=== PATIENT | male | born 1955 | race Caucasian/White ===

== ENCOUNTER 2016-09-13 05:36 | Inpatient (IN) ==
[2016-09-06 13:39] LABS: Basophils # 0.1 10*3/uL (0.0-0.2); Basophils % 0.9 % (0.0-0.8); Eosinophils # 0.6 10*3/uL (0.0-0.87); Eosinophils % 7.4 % (0.00-10.9); Hematocrit 49.3 VOL% (42.0-52.0); Hemoglobin 17.5 GM/DL (14.0-18.0); Immature Granulocytes % 0.4 %; Immature Granulocytes Absolute 0.03 #; Lymphocytes # 1.8 10*3/uL (1.4-4.0); Lymphocytes % 22.2 % (21.2-54.2); Mean Corpuscular HGB Conc 35.5 GM/DL (32-36); Mean Corpuscular Hemoglobin 34 PG (27-34); Mean Corpuscular Volume 94.3 FL (87-102); Mean Platelet Volume 10.2 FL (9.6-12.0); Monocytes # 0.7 10*3/uL (0.11-0.8); Monocytes % 9.2 % (1.7-12.7); Neutrophils # 4.8 10*3/uL (1.4-7.4); Neutrophils % 59.9 % (38.7-73.9); Platelet Count 234 T/CUMM (130-400); Red Blood Count 5.23 MC/CUMM (3.8-5.5); Red Cell Distribution Width 12.6 % (9.3-17.3)
[2016-09-06 13:42] LABS: Apearance,Urine CLEAR (Clear); Bilirubin,Urine Negative (Negative); Blood, Urine Negative (Negative); Glucose,Urine (UA) Negative (Negative); Ketones,Urine Negative (Negative); Nitrite,Urine Negative (Negative); Protein,Urine Negative; RBC,Urine <1 /HPF (0-4); Urine Color Yellow (Yellow); Urine Specific Gravity 1.017 (1.001-1.035); Urine Urobilinogen < 2.0 EU/DL (0.2-1.0); WBC,Urine 1 /HPF (0-6)
[2016-09-06 13:57] LABS: Calcium 9.6 MG/DL (8.5-10.1); Osmolality,Calculated 282.3 MOS/KG (273-304); Potassium 3.9 MMOL/L (3.5-5.1)
[2016-09-13] MEDS ORDERED: cefTRIAXone 1,000 MG VIAL ONE (05:56)
[2016-09-13] MEDS ORDERED: ALVIMOPAN 12 MG CAPSULE ONE (05:56)
[2016-09-13] MEDS ORDERED: SODIUM CHLORIDE 0.9% 100 ML IV ONE (05:57)
[2016-09-13] MEDS ORDERED: SODIUM PHOSPHATE ENEMA 133 ML BOTTLE RECTAL ONE ×2 (05:57→06:00)
[2016-09-13] MEDS ORDERED: ALVIMOPAN 12 MG CAPSULE PO ONE (06:00)
[2016-09-13] MEDS ORDERED: cefTRIAXone 1,000 MG in SODIUM CHLORIDE 0.9% 100 ML IV ONE (06:00)
[2016-09-13] MEDS ORDERED: LORazepam 1 MG TABLET PO ONE (06:08)
[2016-09-13] MEDS ORDERED: FAMOTIDINE 20 MG TABLET PO ONE (06:08)
[2016-09-13] MEDS: LACTATED RINGERS 1,000 ML IV SCH (06:24)
[2016-09-13] MEDS ORDERED: LORazepam 1 MG TABLET ONE (06:37)
[2016-09-13] MEDS ORDERED: FAMOTIDINE 20 MG TABLET ONE (06:37)
--- NOTE | 2016-09-13 06:37 | EKG Report ---
Stationary ECG Study [facility] Test Date: 09/13/2016 6:36:38 AM Pat Name: [facility] Department: Room: 615 Gender: M Parking Supervisor: CARLOTTA : 1955 Requested by: Jaylen Packer Order Number: [id number] Reading MD: DIXIE VELAZQUEZ Intervals [place] Rate: 72 P: 35 NV: 168 QRS: 42 QRSD: 99 T: 54 QT: 353 QTc: 378 Interpretive Statements SINUS RHYTHM POSSIBLE RIGHT VENTRICULAR CONDUCTION DELAY LOW VOLTAGE IN THE ANTERIOR LIMB LEADS NON-SPECIFIC CONDUCTION DELAY Electronically Signed On 09-13-16 07:26:58 CDT by DIXIE VELAZQUEZ [id number]
--- NOTE | 2016-09-13 06:54 | History and Physical Update ---
History and Physical Update - History and Physical H&P was reviewed, the patient examined and there: are no changes in the patients condition since last H&P was completed. - Dictation Physical: refer to scanned H&P - Physical Exam Mental Status: alert and oriented Heart: regular rate and rhythm Lung: clear to auscultation Abdomen: within normal limits Vitals: within normal limits History and Physical Changes: Plan for robotic assisted laparoscopic bilateral inguinal hernia repair with mesh in conjunction with radical prostatectomy (by Dr. Dell Evans).
[2016-09-13] MEDS ORDERED: PROPOFOL 200 MG/20 ML VIAL IV ONE (07:12)
[2016-09-13] MEDS ORDERED: ONDANSETRON 4 MG/2 ML VIAL ONE ×2 (07:12→13:40)
[2016-09-13] MEDS ORDERED: PHENYLEPHRINE 1 MG/10 ML SYRINGE IV ONE (07:12)
[2016-09-13] MEDS ORDERED: GLYCOPYRROLATE 0.4 MG/2 ML VIAL ONE (07:12)
[2016-09-13] MEDS ORDERED: NEOSTIGMINE 10 MG/10 ML VIAL ONE (07:12)
[2016-09-13] MEDS ORDERED: ROCURONIUM 100 MG/10 ML VIAL IV ONE (07:12)
[2016-09-13] MEDS ORDERED: KETOROLAC 30 MG/1 ML VIAL ONE (07:12)
[2016-09-13] MEDS ORDERED: DEXAMETHASONE 10 MG/1 ML VIAL ONE (07:12)
[2016-09-13] MEDS ORDERED: LIDOCAINE 2% 5 ML VIAL ONE (07:12)
[2016-09-13 08:19] LABS: Apearance,Urine CLEAR (Clear); Bilirubin,Urine Negative (Negative); Blood, Urine Large mg/dL (Negative); Glucose,Urine (UA) Negative (Negative); Ketones,Urine Negative (Negative); Mucus,Urine Occasional /LPF (Occasional); Nitrite,Urine Negative (Negative); Protein,Urine Negative; RBC,Urine 16 /HPF (0-4); Urine Color Straw (Yellow); Urine Urobilinogen < 2.0 EU/DL (0.2-1.0); WBC,Urine <1 /HPF (0-6)
[2016-09-13] MEDS ORDERED: ONDANSETRON 4 MG/2 ML VIAL IV PRN ×2 (11:19→13:28)
--- NOTE | 2016-09-13 11:37 | Operative Note ---
Date of procedure: 09/13/16 Pre-op diagnosis: Prostate cancer Post-op diagnosis: same Procedure: 61-year-old white male intermediate risk carcinoma prostate elected to undergo robotic radical prostatectomy. He also has bilateral inguinal hernias that Dr. Pérez will repair. Robotic prostatectomy was explained at length and in detail. Risks, complications, outcomes, sequela, prognosis and alternative therapy was thoroughly discussed. Patient understood this and agreed to proceed. Patient's brought to the operative suite placed on the operating table on the securing pad in the supine position. He is then given a general endotracheal anesthetic and placed in lithotomy position and secured to the table in the usual fashion for robotic prostatectomy. He is then prepared and draped in the usual sterile manner. Formal timeout was performed. Incision is created above the umbilicus. Veress needle was then used to chacon the abdominal wall and pneumoperitoneum was obtained. The Veress needle was confirmed with the to click and saline drop test. After the pneumoperitoneum was obtained, the Veress needle was removed. 8 mm trochars in past. The camera was then inserted and the intra-abdominal contents are examined. There is some heat adhesions from the left colon to the left pelvic sidewall which need to be taken down otherwise were free. Lateral to the camera on each side about 8 cm #1 and #3 arm a put in and the fourth arm split lateral to the third arm on the right side. These are all done under direct vision. Assistance port is placed between the #1 and camera port about 4 inches above. This is a 12 mm port. [place] bipolar is in the left hand and monopolar scissors in the right posterior approach is initially obtained. The colon was dissected from its adhesions. Anterior incision created in the cul-de-sac. There is very little room in this cul-de-sac due to this being a male patient in the large amount of adipose tissue. Vas deferens were identified dissected out ligated and divided. Seminal vesicles were dissected out of the bed. Care was taken using minimal cautery as this is a nerve sparing. A window in Denonvilliers's fascia is then created. Attention was then directed to creating the above bladder flap. There is a large amount of prevesical fat. The median umbilical ligaments were then divided and the bladder was dropped down. There is a large amount of fat around the prostate and I removed that superficial dorsal vein is then ligated with the vessel sealer and then divided. Endopelvic fascia was incised bilaterally small attachments are divided and dissected off the prostate. #1 Vicryl was used to ligate the dorsal venous complex. Attention was directed bladder neck with bunching of the tissue in the midline and light traction on the Crowley the junction is identified. This is initially scored with cautery and sharp dissection was continued down to the anterior bladder neck. This was entered and the bladder was drained. Prostate was bluntly and sharply dissected off the bladder. Crowley catheter was deflated and using the fourth arm this was used for traction. The posterior bladder neck was incised and dissection was continued posteriorly to where the Vannas and seminal vesicles were. Due to the large seminal vesicles I amputated them to help me with the dissection. These were sent with the permanent specimen. Pedicles were taken down intermittently and hemoclipped and then divided. On both sides the lateral prostatic fascia was dissected off the prostate is with a nerve sparing. Remainder posterior lateral pedicles were then Weck clipped and divided. Prostate was pulled up and the plane between the rectum and the prostate was sharply and bluntly developed. Small vessels were coagulated. The nerve was dissected off laterally the prostate was dissected down to the urethra. Dorsal vein complex was then incised in urethra was dissected down to the apex. This was incised anteriorly catheter was pulled back the posterior urethra was divided. Remaining attachments were sharply dissected off and the nerves were retracted laterally. The prostate was then freed up and removed along with its attachments and placed in a specimen bag. Pelvis was then irrigated and drained. Bilateral obturator node dissections were performed. The obturator nerve was kept in view at all times and not injured. A 2-0 Vicryl was used to approximate the posterior urethral plate to the posterior bladder neck. A 3 oh juventino anastomotic suture was begun at 6:00 outside in on both urethra and the bladder neck. This was then continued from the 5:00 to 1:00 and 7:00 11:00 positions. A new 22 K[place] Crowley was then inserted with 12 cc in balloon and light traction was pulled down the anastomotic suture was tied securely. Catheter was irrigated and found to have watertight anastomosis. The patient was then laying flat and the robot was undocked. The staffing assistant 12 mm port was removed and this incision was extended short bit on both sides. The muscles and fascia was divided and the specimen bag with that contain the prostate and its attachments were then removed. Cautery was used hemostasis. This wound was then closed with a running 0 Monocryl. Subcutaneous tissue was irrigated drained hemostasis checked again and then the skin on this wound was closed with skin clips. This point the procedure was turned over to Dr. Pérez. All sponge, needle and instrument counts correct 2 on the prostatectomy. Implants: 22 [place]z silicone Crowley Surgeon / Physician: Dell Evans Estimated blood loss: other (200 cc) Specimens: other (Prostate with seminal vesicles, bilateral obturator nodes) Condition: stable Disposition: no change Results - Labs CBC & BMP: 09/06/16 13:31 09/06/16 13:31 Discharge Plan - Discharge Medications No Action Valsartan 40 mg PO DAILY Meloxicam 7.5 mg PO DAILY Aspirin 325 mg PO DAILY - Follow Up or Referral - Forms/Instructions
--- NOTE | 2016-09-13 12:59 | Operative Note ---
Date of procedure: 09/13/16 Pre-op diagnosis: Symptomatic bilateral inguinal hernias Post-op diagnosis: same Procedure: Preoperative diagnosis Symptomatic bilateral inguinal hernias Postoperative diagnosis Same Procedures performed Robotic assisted laparoscopic bilateral inguinal hernia repair with mesh Findings The radical prostatectomy had already been performed when I started this portion of the procedure. A large portion of the peritoneum had already been taken down in the midline for the prostatectomy. A large right direct inguinal hernia and a moderate left indirect inguinal hernia were identified. The peritoneum was dissected free of both of these hernia spaces and the peritoneal flap dissection was continued to prevent any undermining underneath the mesh. 2 separate 10 x 15 cm collagen coated mesh were placed in the myopectineal orifice and the peritoneal flaps were left open because of a large defect that had been created from the prostatectomy and this was not possible to close. This is why coated mesh was used. The mesh was secured to the pubic tubercle with PDS suture and secured to the anterior abdominal wall above the anterior superior iliac spine bilaterally with a running PDS suture. Tisseel was then used to help secure down the mesh below the ASIS bilaterally and over the iliac vessels and cord structures. The 2 pieces of mesh overlap in the midline. Complications None apparent Specimen None Blood loss None Anesthesia GETA Indications Bilateral inguinal hernias Description of procedure I came to the operating room after the radical prostatectomy had been performed. The robot was docked and laparoscopy was performed. There is an indirect left inguinal hernia and a direct right anal hernia on exam. The peritoneal flaps that have been opened in the midline were extended laterally and from the hernia sac and the cord structures in the myopectineal orifice bilaterally. Once the peritoneal flaps were completely dissected away it was evident that the peritoneum was not able to be closed because of the large portion of peritoneum that was removed for the prostatectomy. A collagen coated piece of polypropylene mesh 10 x 15 cm in size was placed bilaterally and secured to Charlie's ligament and the pubic tubercle medially and a running PDS suture was then used to secure it in the midline and to the anterior abdominal wall but no sutures were placed laterally below the anterior superior iliac spine. This was done bilaterally and the mesh overlapped in the midline. The hernia defects were covered nicely. The Tisseel was then used to help secure the mesh over the iliac vessels and the cord structures as well as the neurovascular structures laterally below the superior iliac spine. The CO2 was released from the abdomen under visualization. The supraumbilical trocar site was closed with a 0 Monocryl suture and the skin incisions were closed with skin clips. The patient was awakened from anesthesia and transferred to recovery Postoperative plan Per urology Implants: covidien collagen coated polypropylene mesh 10 x 15cm (2 pieces) Anesthesia: TRUE Surgeon / Physician: Fabián Pérez Estimated blood loss: minimal Specimens: none sent Condition: stable Disposition: PACU Results - Labs CBC & BMP: 09/06/16 13:31 09/06/16 13:31 Discharge Plan - Discharge Medications No Action Valsartan 40 mg PO DAILY Meloxicam 7.5 mg PO DAILY Aspirin 325 mg PO DAILY - Follow Up or Referral Follow Up: Fabián Pérez MD [Physician] - 2 Weeks - Forms/Instructions
[2016-09-13] MEDS ORDERED: HYDROmorphone PCA 30 MG/30 ML SYRINGE IV ONE (13:14)
[2016-09-13] MEDS: HYDROmorphone PCA 30 MG/30 ML SYRINGE IV SCH (13:15)
[2016-09-13] MEDS ORDERED: DESFLURANE 1 UNIT/15 MINUTE INH ONE (13:24)
[2016-09-13] MEDS ORDERED: ePHEDrine 50 MG/ML AMP ONE (13:24)
[2016-09-13] MEDS ORDERED: SUFentanil 50 MCG/ML AMP ONE (13:24)
[2016-09-13] MEDS ORDERED: ACETAMINOPHEN 1,000 MG/100 ML VIAL IV ONE (13:25)
[2016-09-13] MEDS ORDERED: LACTATED RINGERS 2,000 ML IV ONE (13:25)
[2016-09-13] MEDS ORDERED: HYDROmorphone 2 MG/1 ML VIAL IV PRN (13:28)
--- NOTE | 2016-09-13 13:32 | Anesthesia Post-Op ---
Anesthesia Post OP - Post Ansesthetic Evaluation Patient seen in post op: Yes Resp: within normal limits CV: within normal limits Mental: within normal limits Temp: within normal limits [id number]: within normal limits Nausea and Vomiting: within normal limits Pain: within normal limits
[2016-09-13] MEDS ORDERED: HYDROmorphone 2 MG/1 ML VIAL ONE (13:39)
[2016-09-13] MEDS: DEXTROSE 5% NACL 0.45% 1,000 ML IV SCH ×2 (16:13→22:19)
[2016-09-13] MEDS: SOLIFENACIN 5 MG TABLET PO SCH (16:13)
--- NOTE | 2016-09-13 17:57 | Urology Progress Note ---
Urology - PN: Subj Interval history: Postoperative check. Patient is awake and alert urine is light pink. Vital signs stable. Patient is stable. Exam - Constitutional Vitals: Period Temp Pulse Resp BP Sys/Hart Pulse Ox Last 24 Hr 97 F-98.2 F 80-101 16-20 85-130/56-91 92-100 Results - Labs CBC & BMP: 09/06/16 13:31 09/06/16 13:31 Specialty Discharge - Follow Up or Referrals Follow up with: Fabián Pérez MD [Physician] - 2 Weeks
[2016-09-13] MEDS: ALVIMOPAN 12 MG CAPSULE PO SCH (20:17)
[2016-09-13] MEDS ORDERED: SODIUM CHLORIDE 0.9% 1,000 ML IV ONE (21:31)
[2016-09-13 22:01] LABS: Hematocrit 46.8 VOL% (42.0-52.0); Hemoglobin 15.4 GM/DL (14.0-18.0)
[2016-09-14 05:20] LABS: Basophils % 0.2 % (0.0-0.8); Hematocrit 44.2 VOL% (42.0-52.0); Hemoglobin 14.7 GM/DL (14.0-18.0); Immature Granulocytes % 0.5 %; Lymphocytes # 1.2 10*3/uL (1.4-4.0); Lymphocytes % 6.3 % (21.2-54.2); Mean Corpuscular HGB Conc 33.3 GM/DL (32-36); Mean Corpuscular Hemoglobin 33 PG (27-34); Mean Corpuscular Volume 98.4 FL (87-102); Mean Platelet Volume 10.9 FL (9.6-12.0); Monocytes # 2.4 10*3/uL (0.11-0.8); Monocytes % 13.2 % (1.7-12.7); Neutrophils # 14.8 10*3/uL (1.4-7.4); Neutrophils % 79.8 % (38.7-73.9); Platelet Count 238 T/CUMM (130-400); Red Blood Count 4.49 MC/CUMM (3.8-5.5); Red Cell Distribution Width 13.1 % (9.3-17.3); White Blood Count 18.5 T/CUMM (4-12)
[2016-09-14 05:50] LABS: Calcium 8.6 MG/DL (8.5-10.1); Osmolality,Calculated 283.5 MOS/KG (273-304)
[2016-09-14] MEDS ORDERED: SODIUM CHLORIDE 0.9% 1,000 ML IV ONE (07:00)
[2016-09-14] MEDS ORDERED: HETASTARCH 6% 500 ML IV ONE (08:26)
--- NOTE | 2016-09-14 08:31 | Fluoroscopy Report ---
Exam: [place] cystogram Date: 09/14/2016 6:38 AM Comparison: None Indication: Postop radical prostatectomy with no urine output Technique:[Fluoroscopy time of 2 minutes documented. 13 films were obtained after the injection of 260 cc of Cysto-Conray into the Crowley catheter.] Findings: The Crowley catheter projects in the bladder. The bladder appears to be small in capacity. No evidence of vesicoureteral reflux or bladder mass. Leakage of contrast material around the urethra/bladder base. This finding is more pronounced on the left. Impression: Crowley catheter projects in the urinary bladder which appears to be small in capacity. Leakage of contrast around the urethra/bladder base with findings more pronounced on the left. PROCEDURE INTERPRETED AT [facility] DEPARTMENT OF RADIOLOGY Final Report Signed by: Dr. Viktoria Ovalles
--- NOTE | 2016-09-14 08:33 | Ultrasound Report ---
Referring Physician: Dell Evans Exam: US renal Bilateral Date: September 14, 2016 Reason: Post surgery, no urine output Comparison: Renal ultrasound September 29, 2008 Technique: Grayscale and color flow Doppler ultrasound images of both kidneys were obtained. Ultrasound images were captured and stored. Findings: The right kidney measures 11.3 x 5.6 x 5.5 cm, and the left kidney measures 10.2 x 6.0 x 5.3 cm. No hydronephrosis is present. There is probable mild scarring at the mid left kidney, which could be related to previous surgery. This is better demonstrated on CT. The renal parenchyma echogenicity is unremarkable as visualized. No suspicious renal lesion is identified. Impression: No acute renal process is identified. PROCEDURE INTERPRETED AT [facility] DEPARTMENT OF RADIOLOGY Final Report Signed by: Dr. Kimberlee Bose
--- NOTE | 2016-09-14 08:40 | Urology Progress Note ---
Urology - PN: Subj Interval history: Patient had a stable night however his urine output has been very low. With this in mind this morning I obtain a renal ultrasound and a cystogram. Renal ultrasound reveals no hydronephrosis the cystogram reveals a Crowley in the bladder he does have a slight leak but it is minimal. It appears that he is probably just prerenal and dehydrated. His hemoglobin after surgery was 17. His blood count this morning is okay at 12 and 46. Mitral lites are normal except for his BUN and creatinine. His creatinine is now 4 BUNs up to 26. I have discussed this with Dr. Pérez. He recommends that we put the patient in the unit and I agree with that. We will consult Dr. Sims (nephrology). We will increase his fluids to 150 cc and I will give him a bolus of Hespan. We will repeat his electrolytes and BUN and creatinine in the morning. Exam - Constitutional Vitals: Period Temp Pulse Resp BP Sys/Hart Pulse Ox Last 24 Hr 97 F-98.6 F 83-101 16-20 81-130/50-91 92-100 Results - Labs CBC & BMP: 09/14/16 05:08 09/14/16 05:08 Specialty Discharge - Follow Up or Referrals Follow up with: Fabián Pérez MD [Physician] - 2 Weeks
--- NOTE | 2016-09-14 08:49 | Nephrology Consult Note ---
History of Present Illness Chief complaint: ARF History of present illness: Mr. Delong is a 61 year old male who underwent radical prostatectomy and bilateral hernia repair yesterday. Creatinine was 1.3 preop and today is 4. He was an uric postop and evaluation today is demonstrated no hydronephrosis by ultrasound the Crowley catheter is in good position. His blood pressures been low and his hemoglobin was high postop yesterday suggesting volume depletion. On today's exam he is alert and in no distress he has a blood pressure approximately 90 systolic. He has no edema and his chest is clear. We have discussed this case with Dr. Evans. Impression acute renal failure likely secondary to volume depletion #2 status post radical prostatectomy and bilateral herniorrhaphy. Plan vigorous IV fluid resuscitation and it does appear that he is now making urine and after the fluid resuscitation that has been undertaken. We will follow with you and thank you for allowing us to see Mr. Delong Home Medications Medication Instructions Recorded Confirmed Type Aspirin 325 mg PO DAILY 09/06/16 09/13/16 History Meloxicam 7.5 mg PO DAILY 09/06/16 09/06/16 History Valsartan 40 mg PO DAILY 09/06/16 09/13/16 History Allergies Allergy/AdvReac Type Severity Reaction Status Date / Time No Known Allergies Allergy Unverified 09/06/16 13:22 Medical,Surgical,& Family Hx - Medical History Cardio: History of: Cardiac Dysrhythmia (DURING SURGERY YRS AGO.), Hypertension , Cardiovascular Problems (DR VIVIANA LEE, [place]) Neurology: No history of: Seizures HEENT: History of: Eye Problem (GLASSES), Dental Problems (CAPPED TEETH) Rheumatology: History of;: Rheumatoid Arthritis Respiratory: No history of: Respiratory Problems (FLU VAC- YES; PNEU VAC- NO.) Renal: History of: Renal (Kidney) Cancer Genitourinary: History of: Prostate Problems (PROSTATE CA) Gastrointestinal: History of: Hemorrhoids, GI Problems (HERNIA) Musculoskeletal: History of: Musculoskeletal Problems (OA KNEES AND ANKLES) Other: History of: Anesthesia Reactions (NAUSEA.), Cancer (KIDNEY CA, PROSTATE CA) - Surgical History Thoracic Surgeries: Surgical HX of;: Kidney (Renal Surgery) (MASS ON KIDNEY) HEENT Surgeries: Surgical HX of: Eye Surgery (SUZANNA CATARACT SX) Abdominal Surgeries: Surgical HX of: Colonoscopy, Hernia Repair (X2) - Family History Family History: Reports;: Family Cancer (MOTHER LUNG CA), Family Heart Disease ( FATHER VALVE REPLACMENT), Family Stroke (FATHER) - Social History Smoking Status: Never smoker Frequency of Alcohol Use: Frequently Type of Drug Use: None Exam - Vital Signs Vital signs: Period Temp Pulse Resp BP Sys/Hart Pulse Ox Last 24 Hr 97 F-98.6 F 83-101 16-20 81-130/50-91 92-100 - General Appearance General appearance: well-developed, well-nourished, appears started age Neck: no JVD, no thyromegaly, no carotid bruit, supple Respiratory: no kyphosis, no scoliosis Cardiology: no murmurs, no rub, no gallops, no edema, regular rate, regular rhythm, normal S1, normal S2 Gastrointestinal: normoactive bowel sounds Integumentary: no rash, warm and dry Neurologic: no focal deficit, no asterixis, alert and oriented x3, reflexes 2+ and symmetric, gait normal, strength 5/5 Musculoskeletal: no deformities, no erythema, no cyanosis, no clubbing Psychiatric: mood/affect appropriate, cooperative Results - Labs CBC & BMP: 09/14/16 05:08 09/14/16 05:08 Specialty Discharge - Follow Up or Referrals Follow up with: Fabián Pérez MD [Physician] - 2 Weeks
[2016-09-14] MEDS: DEXTROSE 5% NACL 0.45% 1,000 ML IV SCH ×5 (08:51→19:00)
[2016-09-14] MEDS: ALVIMOPAN 12 MG CAPSULE PO SCH ×2 (08:51→21:02)
[2016-09-14] MEDS: SOLIFENACIN 5 MG TABLET PO SCH (08:51)
[2016-09-14] MEDS ORDERED: VALSARTAN 80 MG TABLET PO SCH (09:00)
[2016-09-14] MEDS: LACTATED RINGERS 1,000 ML IV SCH (09:26)
--- NOTE | 2016-09-14 11:43 | Urology Progress Note ---
Urology - PN: Subj Interval history: Seeing patient in ICU. His urine output has not picked up as of yet. His plan is going in as I dictate. His fluids have been increased to 150 cc. We will give this time and see how things go. This potentially could be ATN. Exam - Constitutional Vitals: Period Temp Pulse Resp BP Sys/Hart Pulse Ox Last 24 Hr 97 F-99.4 F 83-101 12-20 81-130/50-91 91-100 Results - Labs CBC & BMP: 09/14/16 05:08 09/14/16 05:08 Specialty Discharge - Follow Up or Referrals Follow up with: Fabián Pérez MD [Physician] - 2 Weeks
[2016-09-14] MEDS: HYDROmorphone PCA 30 MG/30 ML SYRINGE IV SCH (14:48)
--- NOTE | 2016-09-14 16:53 | Event Note ---
General Surgery Progress Note Chief complaint This patient is a 61-year-old man with prostate cancer and bilateral symptomatic inguinal hernias who underwent combined robotic assisted laparoscopic radical prostatectomy and bilateral inguinal hernia repair with mesh on 09/13/2016 Interval history The patient was hypotensive overnight and had low urine output. He had a cystogram and a renal ultrasound this morning which showed no hydronephrosis and a small leak at the anastomosis. He is now starting to make urine after IV fluid and colloid administration. He has been moved to the ICU. His hemoglobin is stable. His pain is well controlled. Physical exam The patient is now afebrile with actual normal vital signs. He was hypotensive overnight. Abdominal exam is unremarkable with clean incisions Extremities without edema Labs Creatinine is 4.3 today. Imaging Cystogram and renal ultrasound reviewed Assessment and plan Continue IV fluids and supportive care and monitor urine output which is already beginning to improve Diet as tolerated
[2016-09-14] MEDS: DOCUSATE SODIUM 100 MG CAPSULE PO PRN (17:12)
[2016-09-15] MEDS: DEXTROSE 5% NACL 0.45% 1,000 ML IV SCH ×3 (01:34→15:07)
[2016-09-15 05:05] LABS: Basophils % 0.3 % (0.0-0.8); Eosinophils # 0.1 10*3/uL (0.0-0.87); Eosinophils % 1.2 % (0.00-10.9); Hemoglobin 12.1 GM/DL (14.0-18.0); Immature Granulocytes % 1.1 %; Immature Granulocytes Absolute 0.12 #; Lymphocytes # 1.4 10*3/uL (1.4-4.0); Lymphocytes % 12.5 % (21.2-54.2); Mean Corpuscular HGB Conc 32.7 GM/DL (32-36); Mean Corpuscular Hemoglobin 32 PG (27-34); Mean Corpuscular Volume 98.4 FL (87-102); Mean Platelet Volume 10.9 FL (9.6-12.0); Monocytes # 1.4 10*3/uL (0.11-0.8); Monocytes % 12.5 % (1.7-12.7); Neutrophils # 8.2 10*3/uL (1.4-7.4); Neutrophils % 72.4 % (38.7-73.9); Platelet Count 155 T/CUMM (130-400); Red Blood Count 3.76 MC/CUMM (3.8-5.5); Red Cell Distribution Width 13.5 % (9.3-17.3); White Blood Count 11.4 T/CUMM (4-12)
[2016-09-15 05:33] LABS: Calcium 7.4 MG/DL (8.5-10.1); Osmolality,Calculated 282.7 MOS/KG (273-304); Potassium 4.2 MMOL/L (3.5-5.1)
--- NOTE | 2016-09-15 06:35 | Event Note ---
General Surgery Progress Note Chief complaint This patient is a 61-year-old man with prostate cancer and bilateral symptomatic inguinal hernias who underwent combined robotic assisted laparoscopic radical prostatectomy and bilateral inguinal hernia repair with mesh on 09/13/2016 Interval history The patient has improved significantly overnight. His urine output is now between 60 and 120 cc/h and it has cleared up some. There is a large amount of sediment just at the exit site of the Crowley catheter into the tubing. He is eating without any nausea or vomiting. He feels little bit distended. He has passed a little bit of gas but has not had a bowel movement yet. Pain is well controlled. Physical exam The patient afebrile with normal blood pressure and mild tachycardia in the low 100s Chest is clear Heart is regular and tachycardic Abdominal exam is mildly distended with normal bowel sounds clean incisions Extremities without edema There is a little bit of sediment in the urinary catheter where there is a dip down onto his bed before it curves back up to a spot was taped on his leg and the sediment is collecting here Labs Creatinine is 3 today Imaging Cystogram and renal ultrasound reviewed Chest x-ray reviewed Assessment and plan Wean IV fluids to 75 cc an hour this morning If okay with Dr. Evans, transfer the patient to the floor and begin increasing his activity will help with his ileus I will be out over the weekend but if surgical questions arise please contact the on-call surgeon for any assistance.
--- NOTE | 2016-09-15 07:06 | XRay Report ---
Portable chest Date: 09/15/2016 Clinical history: Acute renal failure Comparison: None Technique: Portable AP sitting chest Findings: The heart is minimally enlarged. Diffuse parenchymal findings at the left lung base with small left pleural effusion. Unremarkable mediastinum with degenerative changes. Impression: Minimal cardiomegaly. Atelectasis/infiltration/are other pleural-based pathology at the left lung base with small left pleural effusion. Follow-up chest x-ray may be helpful for further evaluation. PROCEDURE INTERPRETED AT [facility] [place] DEPARTMENT OF RADIOLOGY Final Report Signed by: Dr. Viktoria Ovalles
--- NOTE | 2016-09-15 07:25 | Urology Progress Note ---
Urology - PN: Subj Interval history: Patient had a good night. His urine output picked up significantly. His H&H has dropped 12 and 37. His creatinine is down to 3 but his BUN is up. Dr. Pérez decreased his IV 75 cc an hour. I think we can transfer him to the floor. I will stop the ERGONOMIC SPECIALIST and is got some oral Dilaudid. We need to ambulate. Pathology report is pending. Exam - Constitutional Vitals: Period Temp Pulse Resp BP Sys/Hart Pulse Ox Last 24 Hr 98.1 F-99.5 F 87-104 12-18 84-129/60-78 91-99 Results - Labs CBC & BMP: 09/15/16 04:26 09/15/16 04:26 Specialty Discharge - Follow Up or Referrals Follow up with: Fabián Pérez MD [Physician] - 2 Weeks
[2016-09-15] MEDS: SOLIFENACIN 5 MG TABLET PO SCH (08:32)
[2016-09-15] MEDS: ALVIMOPAN 12 MG CAPSULE PO SCH ×2 (08:32→20:19)
--- NOTE | 2016-09-15 08:52 | Nephrology Progress Note ---
Nephrology - PN: Subj Interval history: Mr. Delong is seen in follow-up of his episode of acute renal impairment. He is much improved with a blood pressure 110 systolic after fluid resuscitation. His urine output is generous and he has dropped his creatinine from 4 yesterday to 3.0 today. Fluid administration has been slowed and he is now ready to be transferred to the floor and will be up out of bed. We expect his creatinine to continue to fall with maintenance of hydration. Exam (PN)-Nephrology - Vital Signs Vital signs: Period Temp Pulse Resp BP Sys/Hart Pulse Ox Last 24 Hr 98.1 F-99.5 F 87-104 12-18 90-129/60-78 91-99 - Lab 09/15/16 04:26 09/15/16 04:26 Most recent lab results Calcium 7.4 MG/DL (8.5-10.1) L 09/15/16 04:26 Specialty Discharge - Follow Up or Referrals Follow up with: Fabián Pérez MD [Physician] - 2 Weeks
--- NOTE | 2016-09-15 11:17 | Pathology Report from [facility] ---
[facility] [place] # : [id number] PATIENT NAME : Darrian Delong ORDERING DR : DAIJA CISNEROS MD CLINICAL HX: Prostate cancer - Inguinal hernia POST-OP DX: Same SPECIMEN INFO: #1 Right obturator node #2 Left obturator node #3 Prostate GROSS DESCRIPTION: #1 Received in formalin labeled with the patients name DARRIAN DELONG and #1 RT OBT NODE consists of two fragments of fatty tissue measuring 2.0 x 1.8 cm in aggregate. Submitted in cassette #1.#2 Received in formalin labeled with the patients name DARRIAN DELONG and #2 LT OBT NODE consists of a fragment of fatty tissue measuring 3.0 x 2.3 cm. Sectioned and submitted in cassette #2.#3 Received in formalin labeled with the patients name DARRIAN DELONG and #3 PROSTATE consists of a 41 gram prostate which measures 5.0 x 5.0 x 3.8 cm. The serosa is shaggy and red-schmidt. The right half is inked black and the left half is inked blue. Cut surfaces are nodular and pink-schmidt with a 1.5 cm brown fluid filled cyst noted within the mid central to base aspect of the prostate. Also seen is a calcified nodule measuring 0.8 cm which is situated at the left base. Received separately in the specimen container is a fragment of red-schmidt tissue consistent with seminal vesicle measuring 2.5 x 2.0 cm. Sections submitted: 3A apical margin, 3B base margin, 3C seminal vesicle margin, 3D thru 3H right apex to base, 3I thru 3L left apex to base, 3M left base calcified nodule following decalcification. DIAGNOSIS FOR DARRIAN DELONG: PROSTATE, RADICAL PROSTATECTOMY (5 x 5 x 3.8 cm, 41gm): TYPE: Adenocarcinoma, acinar type GRADE: Primary Pattern Grade 3; Secondary Pattern Grade 3; Total Victoria Score 6. SHELLEY GRADE GROUP: 1(<=6) TUMOR QUANTITATION: Percentage of prostate involved by tumor 20; Dominant nodule = 10 mm. MARGINS: Margins uninvolved by invasive carcinoma. EXTRAPROSTATIC EXTENSION: Not Identified SEMINAL VESICLE INVASION: Not identified. URINARY BLADDER NECK INVASION: Not identified. LYMPH-VASCULAR INVASION: Not identified PERINEURAL INVASION: Not identified LYMPH NODES: Pelvic lymph node dissection. Two (0/2) benign obturator nodes. AJCC PATHOLOGIC STAGE: IIB ([id number]) COLLECTED DATE: 09/13/2016 [facility] REPORT DATE: 09/15/2016 ELECTRONICALLY SIGNED BY: Andrew Wright III, M.D. 09/15/2016 - 8:55:44 MTDD
--- NOTE | 2016-09-15 11:18 | Physician Query Form ---
CLICK EDIT DOCUMENT TO SELECT QUERY ANSWER --> OK --> SIGN Urmila Ramachandran RN Clinical [employer] W) [phone] (f) [phone] [email or web address] PROVIDERS: Make your selection(s) from the choices in EACH section by typing an "x" and enter comments in the comment section. Please use your independent medical judgment in providing your response. This request does not imply that any particular answer is desired or expected. CLINICAL INDICATORS: (Providers should not edit this section) Based on documentation of "acute renal failure" and "This potentially could be ATN". "His creatinine is now 4, BUNs up to 26. We will increase his fluids to 150 cc and I will give him a bolus of Hespan". Blood pressure of 81/52. Clarify which of the following most accurately represents the patient's renal status: ( x) Acute renal failure ( ) Acute renal failure with necrosis ( ) tubular ( ) medullary ( ) cortical ( ) Acute renal failure with underlying Chronic Kidney Disease (CKD) - please provide stage below ( ) Acute interstitial nephritis ( ) Other, please specify: ( ) Clinically unable to determine Chronic Kidney Disease Stages Source: National Kidney Disease Foundation ( ) Stage I (eGFR > or = 90) ( ) Stage II (eGFR 60 - 89) ( ) Stage III (eGFR 30 - 59) ( ) Stage IV (eGFR 15 - 29) ( ) Stage V (eGFR < 15 or dialysis) COMMENTS: PLEASE ALSO DOCUMENT RESPONSE IN PROGRESS NOTES AND/OR DISCHARGE SUMMARY Use of terms such as suspected, likely, or probable (associated with a specific diagnosis that is being evaluated, monitored, or treated as if it exists) are acceptable and can be restated in the discharge summary if not ruled out. MTDD
[2016-09-15] MEDS: BISACODYL 10 MG SUPP RECTAL SCH (15:07)
[2016-09-16] MEDS: DEXTROSE 5% NACL 0.45% 1,000 ML IV SCH ×2 (00:23→05:22)
[2016-09-16 04:47] LABS: Osmolality,Calculated 288.8 MOS/KG (273-304); Potassium 3.9 MMOL/L (3.5-5.1)
[2016-09-16] MEDS ORDERED: MAGNESIUM HYDROXIDE SUSP 30 ML UDCUP PO PRN (05:12)
[2016-09-16] MEDS: DOCUSATE SODIUM 100 MG CAPSULE PO PRN (07:57)
[2016-09-16] MEDS: SOLIFENACIN 5 MG TABLET PO SCH (07:59)
[2016-09-16] MEDS: ALVIMOPAN 12 MG CAPSULE PO SCH (08:00)
--- NOTE | 2016-09-16 08:22 | Nephrology Progress Note ---
Nephrology - PN: Subj Interval history: Patient is resting comfortably. He is status post radical prostatectomy. Serum creatinine is noted to be down to 1.5 today. No other changes. Exam (PN)-Nephrology - Vital Signs Vital signs: Period Temp Pulse Resp BP Sys/Hart Pulse Ox Last 24 Hr 97.5 F-99.1 F 88-109 12-20 113-153/72-99 20-98 - General Appearance General appearance: well-developed, well-nourished EENT: ATNC Neck: supple Respiratory: clear Cardiology: regular rate, regular rhythm Gastrointestinal: normoactive bowel sounds, no tenderness Neurologic: alert and oriented x3 Musculoskeletal: no clubbing - Lab 09/15/16 04:26 09/16/16 03:32 Most recent lab results Calcium 9.0 MG/DL (8.5-10.1) D 09/16/16 03:32 Assessment and Plan (1) Acute renal failure Status: Acute Assessment and plan: This is resolving. Serum creatinine is stable. Current Visit: Yes Specialty Discharge - Follow Up or Referrals Follow up with: Fabián Pérez MD [Physician] - 2 Weeks
[2016-09-16] MEDS: BISACODYL 10 MG SUPP RECTAL SCH (08:39)
[2016-09-16 12:33] VITALS: BP 137/73
--- NOTE | 2016-09-16 12:52 | Discharge Summary ---
Hospital Course - Hospital Course Hospital Course: 61-year-old white male who is intermediate risk carcinoma prostate and elected to undergo robotic assisted laparoscopic radical prostatectomy. He also has bilateral inguinal hernias and at the same time he is going to have a bilateral laparoscopic hernia repair. He owned underwent these procedures without difficulty. No intraoperative complications. Postoperatively his urine output was somewhat low. The day after surgery his creatinine was up to 4 and he was obviously very dry. He was admitted to the unit for vigorous hydration and observation. He was given colloid and crystalloid and his urine output eventually returned. His creatinine now is dropped down to 1.5. His Hemoccult H&H was 12 and 37. His pathology report has returned. It is a confined cancer with negative nodes and negative margins. He is having bowel movements. His wounds are healing well. He is reached maximal hospital benefit we will discharge him. He will see my nurse on 09/22/16 for catheter removal. Then I will see him the week after that. Activity level is minimal but walking on flat ground is encouraged. He is to continue his home medicines except for his aspirin and meloxicam. His discharge medications are Percocet 5 mg #24. 1-2 p.o. every 4-6 hours as needed pain, no refills. Vesicare 5 mg, #6, 1 p.o. daily, no refills. - Time spent with patient Time with patient DS: Greater than 30 minutes Diagnosis - Discharge Diagnosis (1) Prostate cancer Status: Acute (2) Bilateral inguinal hernia Status: Acute (3) Acute renal failure Status: Resolved Specialty Discharge - Follow Up or Referrals Follow up with: Fabián Pérez MD [Physician] - 2 Weeks Discharge Plan - Discharge Data Disposition: Disch To Home/Self Care Condition at Discharge: Stable Discharge Diet: advance to your usual diet Activity: no lifting, other (No lifting, straining, driving or riding. Walking on flat ground is encouraged) Hygiene: no restrictions Weight Bearing at Discharge: full weight bearing Driving: not until seen by doctor Contact your physician if you experience:: fever over 101, Redness or swelling, Nausea/Vomiting, Bleeding, pain uncontrolled by pain medications - Discharge Medications New Solifenacin [Vesicare] 5 mg PO DAILY tablet Continue Valsartan 40 mg PO DAILY Discontinued Meloxicam 7.5 mg PO DAILY Aspirin 325 mg PO DAILY - Follow Up or Referral Follow Up: Fabián Pérez MD [Physician] - 2 Weeks - Forms/Instructions Exam - Constitutional Vitals: Period Temp Pulse Resp BP Sys/Hart Pulse Ox Last 24 Hr 97.5 F-99.2 F 88-108 18-20 129-153/72-99 20-98 Discharge Results Labs on day of discharge: Labs from last 24 hours 09/16/16 03:32 Sodium 144 Potassium 3.9 Chloride 106 Carbon Dioxide 29 Anion Gap 12.9 BUN 18 D Creatinine 1.50 H GFR Calculation 58 BUN/Creatinine Ratio 12.00 Glucose 111 H Calculated Osmolality 288.8 Calcium 9.0 D DS: Provider Date of admission: 09/13/16 11:19 Primary care physician: . No PCP Attending physician on admission: Dell Evans MD Consults: 09/14/16 08:35 Consult to Physician [CONS] Routine Comment: Prostate cancer, dehydration, prerenal Consulting Provider: Pratik Lawler Consulting Provider Notified: Yes Consult to Specialist Group: Urology When should Consulting Provider be notified: Now Person Notified: negin Date Notified: 09/14/16 Time Notified: 10:45 Discharging clinician: Dell Evans MD
== END 2016-09-16 16:00 | disposition home or self-care (01) | DRG 707 ==
LOC: N.OR 05:36 → N.SDSINP 05:38 → N.5E 11:19 → N.ICU 09-14 08:28 → N.5E 09-14 08:29 → N.ICU 09-14 09:24 → N.5E 09-15 10:52
PROVIDERS: ADMIT Urology; ATTEND Urology